=== PATIENT | male | born 1975 | race Caucasian/White ===

== ENCOUNTER 2016-08-18 16:40 | Emergency (ER) | payer OTHER, MEDICARE | END 2016-08-18 17:32 | disposition home or self-care (01) | LOC: ER1 16:40 | DX: S90.414A Abrasion, right lesser toe(s), initial encounter (principal); F43.10 Post-traumatic stress disorder, unspecified; G20 Parkinson's disease; Z79.899 Other long term (current) drug therapy; W26.8XXA Contact with other sharp object(s), not elsewhere classified, initial encounter | CPT/HCPCS: 99283 ==

== ENCOUNTER → 2021-09-30 | Outpatient (CLI) | payer MEDICARE ==
[~2021-09-30] MED LIST: ARTHRITIS PAI42.5 GM TP; ASPIRIN CHEWABL81 MG PO; AUGMENTIN 875-1 EACH PO; COGENTIN 2MG TAB2 MG PO; DEPAKOTE ER500 MG PO; HALOPERIDOL20 MG PO; IBUPROFEN800 MG PO; MULTIVITAMINS1 EAC1 PO; POLYTRIM EYE DR10 ML OS; PROAIR DIGIHAL90 MCG INH; VITAMIN D325 MC6 PO; ZYPREXA10 MG PO
== END ==
LOC: LAB 09:15
DX: F25.0 Schizoaffective disorder, bipolar type (principal)
CPT/HCPCS: 36415; G0480